=== PATIENT | female | born 1985 | race Two or more races ===

== ENCOUNTER → 2023-12-06 14:34 | Outpatient (REF) | payer OTHER, SELFPAY | LOC: WDC 14:34 | PROVIDERS: ATTENDING PHYSICIAN Family Medicine | DX: Z12.31 Encounter for screening mammogram for malignant neoplasm of breast (principal); R92.8 Other abnormal and inconclusive findings on diagnostic imaging of breast | CPT/HCPCS: 76642; 77063; 77067 ==

== ENCOUNTER → 2023-12-21 16:53 | Outpatient (REF) | payer OTHER, SELFPAY | LOC: RAD 16:53 | PROVIDERS: ATTENDING PHYSICIAN Family Medicine | DX: Z86.018 Personal history of other benign neoplasm (principal); R10.2 Pelvic and perineal pain | CPT/HCPCS: 76801 ==